=== PATIENT | female | born 1960 | race Caucasian/White ===

== ENCOUNTER 2019-03-28 11:00 | Emergency (ER) | payer BC ==
[~2019-03-28] VITALS: Ht 162.6 cm; Wt 46.0 kg
[2019-03-28] MEDS ORDERED: ondansetron/PF 4mg/2ml inj IV ONE (11:45)
[2019-03-28] MEDS ORDERED: meclizine 12.5mg tablet PO ONE (11:45)
[2019-03-28] MEDS ORDERED: normal saline 1000ml 1,000 ML IV ONE (11:45)
[2019-03-28 12:15] LABS: BASOPHILS % (AUTO) 0.2 % (0-1); EOSINOPHILS # (AUTO) 0.3 X10'3 (0-0.9); EOSINOPHILS % (AUTO) 3.4 % (0-6); HEMATOCRIT 44.6 % (35.0-45.0); LYMPHOCYTES # (AUTO) 0.9 X10'3 (1.1-4.8); LYMPHOCYTES % (AUTO) 11.1 % (21-51); MEAN CORPUSCULAR HEMOGLOBIN 30.2 PG (27.0-31.0); MEAN CORPUSCULAR HGB CONC 33.6 g/dL (33.0-36.5); MEAN CORPUSCULAR VOLUME 89.8 FL (78-98); MEAN PLATELET VOLUME 8.7 FL (7.4-10.4); MONOCYTES # (AUTO) 0.4 X10'3 (0-0.9); MONOCYTES % (AUTO) 4.6 % (2-12); NEUTROPHILS # (AUTO) 6.6 X10'3 (1.8-7.7); NEUTROPHILS % (AUTO) 80.7 % (42-75); PLATELET COUNT 290 X10'3 (140-440); RED BLOOD COUNT 4.97 X10'6 (4.20-5.60); WHITE BLOOD COUNT 8.2 X10'3 (4.5-11.0)
[2019-03-28 12:28] LABS: ALANINE AMINOTRANSFERASE 19 U/L (12-78); ALBUMIN 3.8 G/DL (3.4-5.0); ALBUMIN/GLOBULIN RATIO 1.1 (1.1-1.5); ALKALINE PHOSPHATASE 85 IU/L (46-116); ANION GAP 17 (8-16); ASPARTATE AMINO TRANSFERASE 17 U/L (10-37); BILIRUBIN,TOTAL 0.5 MG/DL (0.1-1.0); BLOOD UREA NITROGEN 7 MG/DL (7-18); BUN/CREATININE RATIO 9.9 (6.6-38.0); CALCIUM 8.4 MG/DL (8.5-10.1); CHLORIDE 106 MMOL/L (99-107); CREATININE 0.71 MG/DL (0.40-0.90); GLUCOSE 110 MG/DL (70-104); POTASSIUM 3.1 MMOL/L (3.5-5.1); SODIUM 141 MMOL/L (135-145); TOTAL CARBON DIOXIDE 17.9 MMOL/L (24-32); TOTAL PROTEIN 7.3 G/DL (6.4-8.2); eGFR 85 ML/MIN
[2019-03-28 12:35] LABS: MAGNESIUM 1.8 MG/DL (1.5-2.4)
[2019-03-28] MEDS ORDERED: potassium Cl 20 mEq SR tablet PO STA (12:44)
[2019-03-28] MEDS ORDERED: diphenhydrAMINE 50 mg/ml inj IV ONE ×2 (12:45→16:00)
[2019-03-28] MEDS ORDERED: proCHLORperazine 10 MG/2 ml inj IV ONE (12:45)
[2019-03-28] MEDS ORDERED: haloperidol lactate 5mg/ml inj IM ONE (13:45)
[2019-03-28] MEDS ORDERED: gabapentin 400mg capsule PO ONE (13:45)
--- NOTE | 2019-03-28 15:12 | NUR ---
PT HAS A NEUROGENIC BLADDER, STR CATH RECEIVED 475CC CLEAR URINE OUT.
[2019-03-28] MEDS ORDERED: LORazepam 2 mg/ml vial IV ONE (16:00)
[2019-03-28] MEDS ORDERED: pantoprazole 40 MG vial IV ONE (16:25)
[2019-03-28] MEDS ORDERED: famotidine/PF 10 mg/ml inj IV ONE (16:25)
[2019-03-28] MEDS ORDERED: POTA20TA19 PO (16:44)
[2019-03-28] MEDS ORDERED: PHE25R PR (16:44)
[2019-03-28] MEDS ORDERED: ONDA8TAB6 PO (16:44)
[2019-03-28] MEDS ORDERED: PANT-47 PO (16:44)
[2019-03-28] MEDS ORDERED: ketorolac tromethamine 15mg/ml inj. IV ONE (16:50)
[2019-03-28] MEDS ORDERED: MECL-111 PO (16:52)
[2019-03-28 19:33] LABS: CLARITY,URINE CLEAR (Clear); COLOR,URINE YELLOW (Yellow); GLUCOSE, URINE NEGATIVE (Neg); KETONES,URINE >=80 mg/dl (Neg); LEUKOCYTE ESTERASE ,URINE NEGATIVE (Neg); NITRITES, URINE NEGATIVE (Neg); OCCULT BLOOD,URINE TRACE-INTACT (Neg); PROTEIN,URINE NEGATIVE (Neg); UROBILINOGEN,URINE 0.2 E.U/dL (0.2-1.0)
[2019-03-28 19:36] LABS: UA COLLECTION TYPE STRAIGHT CATH
[2019-03-28] MEDS ORDERED: ZALE10CA (19:43)
[2019-03-28] MEDS ORDERED: TIZA4TAB5 (19:43)
[2019-03-28] MEDS ORDERED: ESTA2TAB (19:43)
[2019-03-28] MEDS ORDERED: ESZO2TAB31 (19:43)
[2019-03-28] MEDS ORDERED: HYDR50TA65 (19:43)
[2019-03-28] MEDS ORDERED: METH500T6 (19:43)
[2019-03-28] MEDS ORDERED: GABA-532 (19:43)
[2019-03-28] MEDS ORDERED: CARI-431 (19:43)
[2019-03-28 19:47] LABS: BACTERIA,URINE 1+ /HPF (Neg); MUCUS STRANDS MANY /LPF (Neg); RBC,URINE 0-2 /HPF (0-2); SQUAMOUS EPITHELIAL CELL,UR FEW /LPF (FEW)
[2019-03-28 19:48] LABS: TRANSITIONAL EPI CELLS,URINE FEW /HPF
[2019-03-28 19:49] LABS: WBC CLUMPS,URINE FEW /HPF (NEGATIVE)
[2019-03-28 20:29] VITALS: BP 139/81
[2019-03-28] MEDS ORDERED: CEPH500C5 PO (20:50)
--- NOTE | 2019-03-28 20:52 | NUR ---
SPOKE TO ABOUT HER UA. HE WROTE A PRESCRIPTION. I GAVE IT TO HER.
--- NOTE | 2019-03-28 20:56 | NUR ---
Dr. Parish notified of pt's urinalysis report. pt has UTI, new script given to pt. pt instructed to take it and finish it as prescribed. pt verbalizes understanding. VINCENT Rodriguez calling son to pick pt up.
== END 2019-03-28 21:05 | disposition home or self-care (01) ==
LOC: ER 11:01
DX: H81.10 Benign paroxysmal vertigo, unspecified ear (principal); E87.6 Hypokalemia; R11.2 Nausea with vomiting, unspecified; G89.29 Other chronic pain; Z98.890 Other specified postprocedural states; Z88.8 Allergy status to other drugs, medicaments and biological substances; Z79.2 Long term (current) use of antibiotics; Z79.899 Other long term (current) drug therapy
CPT/HCPCS: 36415; 70450; 71045; 80053; 81001; 83735; 83880; 84484; 85025; 87077; 87088; 87186; 93005; 96361; 96372; 96374; 96375; 96376; 99284; C9113; J0780; J1200; J1630; J1885; J2060; J2405; J3490; J7030; J8597

== ENCOUNTER 2023-03-31 11:42 | Emergency (ER) | payer BC ==
[~2023-03-31] VITALS: Ht 162.6 cm; Wt 55.0 kg
[~2023-03-31 11:42] MED LIST: CARI-431; ESTA2TAB; ESZO2TAB31; GABA-532; HYDR50TA65; MECL-302 PO; METH-797; ONDA8TAB6 PO; PANT-47 PO; PHE25R PR; TIZA-205; ZALE10CA
[2023-03-31 11:54] VITALS: BP 131/77; PULSE 73; RESP 16; TEMP 98.2; O2SAT 100
[2023-03-31 12:42] LABS: BASOPHILS % (AUTO) 0.3 % (0-1); EOSINOPHILS % (AUTO) 0.2 % (0-6); HEMATOCRIT 39.9 % (35.0-45.0); HEMOGLOBIN 13.6 g/dl (12.0-16.0); LYMPHOCYTES # (AUTO) 0.8 X10'3 (1.1-4.8); MEAN CORPUSCULAR HGB CONC 34.2 g/dL (33.0-36.5); MEAN CORPUSCULAR VOLUME 90.7 FL (78-98); MONOCYTES # (AUTO) 0.2 X10'3 (0-0.9); MONOCYTES % (AUTO) 3.4 % (2-12); NEUTROPHILS # (AUTO) 5.7 X10'3 (1.8-7.7); NEUTROPHILS % (AUTO) 84.1 % (42-75); PLATELET COUNT 295 X10'3 (140-440); RED CELL DISTRIBUTION WIDTH 13.7 % (11.5-14.5); WHITE BLOOD COUNT 6.8 X10'3 (4.5-11.0)
[2023-03-31 12:56] LABS: ALANINE AMINOTRANSFERASE 28 U/L (12-78); ALBUMIN 3.5 G/DL (3.4-5.0); ALKALINE PHOSPHATASE 77 IU/L (46-116); ANION GAP 8 (8-16); ASPARTATE AMINO TRANSFERASE 20 U/L (10-37); BILIRUBIN,TOTAL 0.3 MG/DL (0.1-1.0); BLOOD UREA NITROGEN 9 MG/DL (7-18); BUN/CREATININE RATIO 16.7 (10.0-20.0); CALCIUM 8.8 MG/DL (8.5-10.1); CHLORIDE 107 MMOL/L (99-107); CREATININE 0.54 MG/DL (0.40-0.90); ETHANOL < 10 MG/DL (<10); GLUCOSE 140 MG/DL (70-104); LIPASE 27 U/L (16-77); MAGNESIUM 2.1 MG/DL (1.5-2.4); POTASSIUM 4.3 MMOL/L (3.5-5.1); SODIUM 140 MMOL/L (135-145); TOTAL CARBON DIOXIDE 24.9 MMOL/L (24-32); TOTAL PROTEIN 6.9 G/DL (6.4-8.2); eCRCL 96 ML/MIN; eGFR > 90 ML/MIN
[2023-03-31] MEDS ORDERED: LORazepam 2 mg/ml vial IM ONE (13:10)
[2023-03-31] MEDS ORDERED: ondansetron 4mg rapidly disintigrating tab PO ONE (13:50)
[2023-03-31 14:56] LABS: BILIRUBIN,URINE NEGATIVE (Neg); CLARITY,URINE CLOUDY (Clear); COLOR,URINE YELLOW (Yellow); GLUCOSE, URINE NEGATIVE (Neg); KETONES,URINE 15 mg/dl (Neg); LEUKOCYTE ESTERASE ,URINE NEGATIVE (Neg); NITRITES, URINE POSITIVE (Neg); OCCULT BLOOD,URINE NEGATIVE (Neg); PROTEIN,URINE NEGATIVE (Neg); UROBILINOGEN,URINE 0.2 E.U/dL (0.2-1.0)
[2023-03-31 15:06] LABS: UA COLLECTION TYPE STRAIGHT CATH
[2023-03-31 15:10] LABS: BACTERIA,URINE 4+ /HPF (Neg); MUCUS STRANDS FEW /LPF (Neg); SQUAMOUS EPITHELIAL CELL,UR MODERATE /LPF (FEW)
[2023-03-31 15:21] LABS: URINE AMPHETAMINE SCREEN NEGATIVE (Neg); URINE BARBITUATE SCREEN NEGATIVE (Neg); URINE BENZODIAZEPINES SCREEN NEGATIVE (Neg); URINE CANNABINOID SCREEN NEGATIVE (Neg); URINE COCAINE SCREEN NEGATIVE (Neg); URINE METHADONE SCREEN NEGATIVE (Neg); URINE OPIATE SCREEN POSITIVE (Neg); URINE PHENCYCLIDINE SCREEN NEGATIVE (Neg)
[2023-03-31] MEDS ORDERED: cephalexin 250mg capsule PO ONE (15:25)
[2023-03-31] MEDS ORDERED: CEPH-585 PO (15:39)
[2023-03-31] MEDS ORDERED: MECL-226 PO (16:26)
== END 2023-03-31 17:03 | disposition home or self-care (01) ==
LOC: ER 11:43
DX: N39.0 Urinary tract infection, site not specified (principal); G89.29 Other chronic pain; M54.9 Dorsalgia, unspecified; Z79.899 Other long term (current) drug therapy
CPT/HCPCS: 36415; 70450; 80053; 80305; 80320; 81001; 83690; 83735; 85025; 87088; 87186; 96372; 99285; J2060; 87077; C1758

== ENCOUNTER 2023-06-05 08:16 | Emergency (ER) | payer BC ==
[~2023-06-05] VITALS: Ht 162.6 cm; Wt 57.7 kg
[~2023-06-05 08:16] MED LIST changes: +MECL-226 PO
[2023-06-05 08:17] VITALS: BP 122/83; PULSE 65; RESP 16; TEMP 98; O2SAT 99
[2023-06-05 10:25] LABS: BILIRUBIN,URINE NEGATIVE (Neg); CLARITY,URINE CLEAR (Clear); COLOR,URINE YELLOW (Yellow); GLUCOSE, URINE NEGATIVE (Neg); KETONES,URINE NEGATIVE (Neg); LEUKOCYTE ESTERASE ,URINE NEGATIVE (Neg); NITRITES, URINE NEGATIVE (Neg); OCCULT BLOOD,URINE NEGATIVE (Neg); PH,URINE 5.5 (4.8-8.0); PROTEIN,URINE NEGATIVE (Neg); UROBILINOGEN,URINE 0.2 E.U/dL (0.2-1.0)
[2023-06-05 10:27] LABS: UA COLLECTION TYPE CLN CATCH MIDSTREAM
[2023-06-05 10:45] LABS: URINE AMPHETAMINE SCREEN NEGATIVE (Neg); URINE BARBITUATE SCREEN NEGATIVE (Neg); URINE BENZODIAZEPINES SCREEN NEGATIVE (Neg); URINE CANNABINOID SCREEN NEGATIVE (Neg); URINE COCAINE SCREEN NEGATIVE (Neg); URINE METHADONE SCREEN NEGATIVE (Neg); URINE OPIATE SCREEN POSITIVE (Neg); URINE PHENCYCLIDINE SCREEN NEGATIVE (Neg)
[2023-06-05 11:04] LABS: BASOPHILS % (AUTO) 0.5 % (0-1); EOSINOPHILS # (AUTO) 0.1 X10'3 (0-0.9); HEMATOCRIT 41.8 % (35.0-45.0); HEMOGLOBIN 13.9 g/dl (12.0-16.0); LYMPHOCYTES # (AUTO) 2.2 X10'3 (1.1-4.8); LYMPHOCYTES % (AUTO) 29.7 % (21-51); MEAN CORPUSCULAR HEMOGLOBIN 29.9 PG (27.0-31.0); MEAN CORPUSCULAR HGB CONC 33.2 g/dL (33.0-36.5); MEAN CORPUSCULAR VOLUME 90.3 FL (78-98); MONOCYTES # (AUTO) 0.5 X10'3 (0-0.9); MONOCYTES % (AUTO) 7.4 % (2-12); NEUTROPHILS # (AUTO) 4.4 X10'3 (1.8-7.7); NEUTROPHILS % (AUTO) 60.4 % (42-75); PLATELET COUNT 292 X10'3 (140-440); RED BLOOD COUNT 4.63 X10'6 (4.20-5.60); RED CELL DISTRIBUTION WIDTH 12.8 % (11.5-14.5); WHITE BLOOD COUNT 7.3 X10'3 (4.5-11.0)
[2023-06-05] MEDS ORDERED: NALO4SPR3 NS (11:22)
[2023-06-05 11:30] LABS: ALANINE AMINOTRANSFERASE 20 U/L (12-78); ALBUMIN 4.1 G/DL (3.4-5.0); ALBUMIN/GLOBULIN RATIO 1.3 (1.1-1.5); ALKALINE PHOSPHATASE 76 IU/L (46-116); ANION GAP 9 (8-16); ASPARTATE AMINO TRANSFERASE 17 U/L (10-37); BILIRUBIN,TOTAL 0.5 MG/DL (0.1-1.0); BLOOD UREA NITROGEN 14 MG/DL (7-18); CALCIUM 8.8 MG/DL (8.5-10.1); CHLORIDE 108 MMOL/L (99-107); GLUCOSE 102 MG/DL (70-104); POTASSIUM 4.4 MMOL/L (3.5-5.1); SODIUM 144 MMOL/L (135-145); TOTAL CARBON DIOXIDE 27.4 MMOL/L (24-32); TOTAL PROTEIN 7.3 G/DL (6.4-8.2); eCRCL 73 ML/MIN; eGFR 85 ML/MIN
== END 2023-06-05 11:56 | disposition home or self-care (01) ==
LOC: ER 08:17
DX: F11.221 Opioid dependence with intoxication delirium (principal); Z98.890 Other specified postprocedural states; Z88.6 Allergy status to analgesic agent; Z88.8 Allergy status to other drugs, medicaments and biological substances; Z79.899 Other long term (current) drug therapy
CPT/HCPCS: 36415; 80053; 80305; 81003; 85025; 99284

== ENCOUNTER 2023-10-17 17:46 | Emergency (ER) | payer BC ==
[~2023-10-17] VITALS: Ht 167.6 cm; Wt 50.0 kg
[~2023-10-17 17:46] MED LIST changes: -CARI-431; +NALO4SPR5 NS; +[UNRECOGNIZED DRUG - CODE]
[2023-10-17 17:58] VITALS: TEMP 97.8
[2023-10-17 19:28] LABS: BASOPHILS % (AUTO) 0.2 % (0-1); EOSINOPHILS % (AUTO) 0.1 % (0-6); HEMOGLOBIN 15.4 g/dl (12.0-16.0); LYMPHOCYTES # (AUTO) 0.6 X10'3 (1.1-4.8); LYMPHOCYTES % (AUTO) 4.7 % (21-51); MEAN CORPUSCULAR HEMOGLOBIN 29.7 PG (27.0-31.0); MEAN CORPUSCULAR HGB CONC 33.6 g/dL (33.0-36.5); MEAN CORPUSCULAR VOLUME 88.5 FL (78-98); MEAN PLATELET VOLUME 8.8 FL (7.4-10.4); MONOCYTES # (AUTO) 0.4 X10'3 (0-0.9); MONOCYTES % (AUTO) 2.9 % (2-12); NEUTROPHILS # (AUTO) 12.6 X10'3 (1.8-7.7); NEUTROPHILS % (AUTO) 92.1 % (42-75); PLATELET COUNT 289 X10'3 (140-440); RED BLOOD COUNT 5.19 X10'6 (4.20-5.60); RED CELL DISTRIBUTION WIDTH 13.2 % (11.5-14.5); WHITE BLOOD COUNT 13.7 X10'3 (4.5-11.0)
[2023-10-17 19:46] LABS: ALBUMIN 4.2 G/DL (3.4-5.0); ANION GAP 6 (8-16); BLOOD UREA NITROGEN 10 MG/DL (7-18); BUN/CREATININE RATIO 14.1 (10.0-20.0); C-REACTIVE PROTEIN 0.59 MG/DL (0.0-0.5); CALCIUM 9.6 MG/DL (8.5-10.1); CHLORIDE 105 MMOL/L (99-107); CREATININE 0.71 MG/DL (0.40-0.90); GLUCOSE 118 MG/DL (70-104); POTASSIUM 4.5 MMOL/L (3.5-5.1); SODIUM 139 MMOL/L (135-145); TOTAL CARBON DIOXIDE 28.1 MMOL/L (24-32); eCRCL 66 ML/MIN; eGFR 84 ML/MIN
[2023-10-17] MEDS: meclizine 12.5mg tablet PO ONE (20:04)
[2023-10-17 20:45] LABS: BILIRUBIN,URINE NEGATIVE (Neg); CLARITY,URINE SLIGHTLY CLOUDY (Clear); COLOR,URINE YELLOW (Yellow); GLUCOSE, URINE NEGATIVE (Neg); KETONES,URINE TRACE mg/dl (Neg); LEUKOCYTE ESTERASE ,URINE NEGATIVE (Neg); NITRITES, URINE NEGATIVE (Neg); OCCULT BLOOD,URINE NEGATIVE (Neg); PROTEIN,URINE NEGATIVE (Neg); UROBILINOGEN,URINE 0.2 E.U/dL (0.2-1.0)
[2023-10-17 20:53] LABS: UA COLLECTION TYPE VOIDED
[2023-10-17 20:55] LABS: AMORPHOUS PHOSPHATES 3+; BACTERIA,URINE FEW /HPF (Neg); MUCUS STRANDS NONE SEEN /LPF (Neg); RBC,URINE NONE SEEN /HPF (0-2); SQUAMOUS EPITHELIAL CELL,UR FEW /LPF (FEW); WBC,URINE 0-4 /HPF (0-4)
[2023-10-17 21:03] LABS: URINE AMPHETAMINE SCREEN NEGATIVE (Neg); URINE BARBITUATE SCREEN NEGATIVE (Neg); URINE BENZODIAZEPINES SCREEN NEGATIVE (Neg); URINE CANNABINOID SCREEN NEGATIVE (Neg); URINE COCAINE SCREEN NEGATIVE (Neg); URINE METHADONE SCREEN NEGATIVE (Neg); URINE OPIATE SCREEN POSITIVE (Neg); URINE PHENCYCLIDINE SCREEN NEGATIVE (Neg)
[2023-10-17 21:42] VITALS: BP 141/85; PULSE 80; RESP 18; O2SAT 98
[2023-10-17] MEDS ORDERED: MECL-302 PO (21:49)
== END 2023-10-17 21:54 | disposition home or self-care (01) ==
LOC: ER 17:47
DX: R42 Dizziness and giddiness (principal); R11.2 Nausea with vomiting, unspecified; R68.83 Chills (without fever); G89.29 Other chronic pain; M54.9 Dorsalgia, unspecified; Z88.8 Allergy status to other drugs, medicaments and biological substances; Z79.899 Other long term (current) drug therapy; Z98.890 Other specified postprocedural states
CPT/HCPCS: 36415; 80048; 80305; 81001; 84145; 85025; 86140; 93005; 99284; J8597